=== PATIENT | male | born 1945 | race Caucasian/White ===

== ENCOUNTER 2019-01-25 09:56 | Inpatient (IN) | payer MEDICARE, MEDICAID ==
[~2019-01-25] VITALS: Ht 185.4 cm; Wt 78.8 kg
[2019-01-25] MEDS ORDERED: SODIUM CHLORIDE 0.9% 1,000ML IVBOLUS ONE (10:00)
[2019-01-25] MEDS ORDERED: SODIUM CHLORIDE FLUSH 10ML SYR IVF ONE (10:00)
[2019-01-25] MEDS ORDERED: ALBUTEROL SULFATE 2.5 MG/3 ML ONE (10:18)
[2019-01-25] MEDS ORDERED: PLEASE ENTER ALLERGIES MC SCH (10:30)
[2019-01-25] MEDS ORDERED: ALBUTEROL SULFATE 2.5 MG/3 ML NPPB ONE (10:30)
[2019-01-25] MEDS ORDERED: PLEASE ENTER HEIGHT AND WEIGHT MC SCH (10:30)
[2019-01-25] MEDS ORDERED: OMNIPAQUE 350 MG/ML, 100ML BOTTLE ONE (10:41)
--- NOTE | 2019-01-25 10:49 | NUR ---
ON RETURN FROM CT PT RECEIVED BREATHING TX
[2019-01-25 11:11] LABS: BASOPHILS # (AUTO) 0.01 x10^3/uL (0-0.1); BASOPHILS % (AUTO) 0 % (0-1); EOSINOPHILS # (AUTO) 0.01 x10^3/uL (0-0.4); EOSINOPHILS % (AUTO) 0 % (1-7); LYMPHOCYTES # (AUTO) 0.93 x10^3/uL (1-3.4); LYMPHOCYTES % (AUTO) 10 % (22-44); MD NO; MEAN CORPUSCULAR HGB CONC 33.1 g/dL (33.2-36.2); MEAN CORPUSCULAR VOLUME 84.6 fL (81-97); MEAN PLATELET VOLUME 10.5 fL (7.4-10.4); MONOCYTES % (AUTO) 5 % (2-9); NEUTROPHILS # (AUTO) 7.62 x10^3/uL (1.8-6.8); NEUTROPHILS % (AUTO) 85 % (42-75); PLATELET COUNT 220 x10^3/uL (130-400); RED BLOOD COUNT 3.84 x10^6/uL (4.38-5.82); RED CELL DISTRIBUTION WIDTH 19.7 % (9.4-14.8)
--- NOTE | 2019-01-25 11:11 | NUR ---
ER SPEAKING WITH PT ABOUT CT RESULTS AND INTENTION TO ADMIT TO HOSPITAL
[2019-01-25] MEDS ORDERED: LIDOCAINE-MPF 1%, 5ML ONE (11:17)
[2019-01-25 11:19] LABS: INTERNATIONAL NORMALIZED RATIO 1.03 (0.93-1.1); PROTHROMBIN TIME 10.8 Seconds (9.6-11.5)
--- NOTE | 2019-01-25 11:22 | NUR ---
TO [facility] VIA MEGAN
[2019-01-25 11:23] LABS: ALBUMIN 2.8 g/dL (3.4-5.0); ANION GAP 7 mmol/L (5-15); CALCIUM 7.9 mg/dL (8.5-10.1); CHLORIDE 113 mmol/L (98-107)
[2019-01-25 11:29] LABS: ALANINE AMINOTRANSFERASE 23 U/L (12-78); ALKALINE PHOSPHATASE 76 U/L (45-117); BILIRUBIN,TOTAL 0.6 mg/dL (0.2-1.0); CREATININE 1.33 mg/dL (0.7-1.3); TOTAL PROTEIN 5.8 g/dL (6.4-8.2); TROPONIN I 0.067 ng/mL (0.000-0.045)
[2019-01-25] MEDS ORDERED: ASPIRIN 81 MG TABLET CHEW PO ONE (11:30)
[2019-01-25] MEDS ORDERED: NITR9CAP3 SL (11:37)
[2019-01-25] MEDS ORDERED: OMEP40CA6 PO (11:37)
[2019-01-25] MEDS ORDERED: CHOL2000 PO (11:37)
[2019-01-25] MEDS ORDERED: DOCU250C9 PO (11:37)
[2019-01-25] MEDS ORDERED: DULO30CA2 PO (11:37)
[2019-01-25] MEDS ORDERED: ATOR40TA78 PO (11:37)
[2019-01-25] MEDS ORDERED: CARV3.122 PO (11:37)
[2019-01-25] MEDS ORDERED: OMEG-14 PO (11:37)
[2019-01-25] MEDS ORDERED: BACL20TA PO (11:37)
[2019-01-25] MEDS ORDERED: ASCO10004 PO (11:37)
[2019-01-25] MEDS ORDERED: POTA10PI2 PO (11:37)
[2019-01-25] MEDS ORDERED: PREG100C PO (11:37)
[2019-01-25] MEDS ORDERED: TAMS-11 PO (11:37)
[2019-01-25] MEDS ORDERED: ASPI-515 PO (11:37)
[2019-01-25] MEDS ORDERED: OMEP20TA62 PO (11:37)
[2019-01-25] MEDS ORDERED: CYAN250013 PO (11:37)
[2019-01-25] MEDS ORDERED: FINA5TAB4 PO ×2 (11:37→11:42)
[2019-01-25] MEDS ORDERED: LIPA1CAP18 PO (11:37)
[2019-01-25] MEDS ORDERED: FURO20TA3 PO (11:37)
[2019-01-25] MEDS ORDERED: ALBU8.5H8 INH (11:37)
[2019-01-25] MEDS ORDERED: HYDR-3240 PO (11:37)
--- NOTE | 2019-01-25 11:42 | NUR ---
Report to [facility]
--- NOTE | 2019-01-25 12:10 | NUR ---
returned from [facility] and to be transported to floor
[2019-01-25 12:46] VITALS: BP 123/81
[2019-01-25] MEDS ORDERED: ONDANSETRON ODT 4 MG PO PRN (16:30)
[2019-01-25] MEDS ORDERED: ACETAMINOPHEN 325 MG TABLET PO PRN (16:30)
[2019-01-25] MEDS ORDERED: DOCUSATE 100 MG CAPSULE PO PRN (16:30)
[2019-01-25] MEDS ORDERED: HYDROcodone/APAP 5/325 TABLET PO PRN (16:30)
[2019-01-25] MEDS ORDERED: LABETALOL 5 MG/ML SYRINGE IVPush PRN (16:30)
[2019-01-25] MEDS ORDERED: BISACODYL 10 MG SUPP PR PRN (16:30)
[2019-01-25] MEDS ORDERED: PROMETHAZINE 25 MG/ML, 1ML IM PRN (16:30)
[2019-01-25] MEDS ORDERED: ONDANSETRON 2MG/ML, 2ML IVPush PRN (16:30)
[2019-01-25] MEDS ORDERED: hydrALAzine 20 MG/ML, 1ML IVPush PRN (16:30)
[2019-01-25] MEDS ORDERED: POLYETHYLENE GLYCOL 17 GM PACKET PO PRN (16:30)
[2019-01-25] MEDS: [UNRECOGNIZED DRUG - REMARK] MC SCH (16:51)
[2019-01-25 17:02] LABS: FREE T4 (FREE THYROXINE) 0.95 ng/dL (0.76-1.46); THYROID STIMULATING HORMONE 1.28 mIU/L (0.358-3.740)
[2019-01-25 17:19] LABS: HEMOGLOBIN A1C 6.1 % (4.2-6.3)
[2019-01-25] MEDS ORDERED: ALBUTEROL SULFATE 2.5 MG/3 ML NPPB PRN (17:30)
[2019-01-25] MEDS: PREGABALIN 100 MG CAPSULE PO SCH ×2 (18:05→20:04)
[2019-01-25] MEDS: HYDROcodone/APAP 5/325 TABLET PO PRN ×2 (18:06→22:34)
[2019-01-25] MEDS: GUAIFENESIN ER 600 MG TABLET PO SCH (18:06)
[2019-01-25] MEDS: NICOTINE 7 MG/24 HR PATCH.TD24 TD SCH (18:06)
[2019-01-25] MEDS: HEPARIN 5,000 UNITS/ML, 1ML SQ SCH (18:06)
[2019-01-25 18:40] VITALS: BP 111/73
[2019-01-25] MEDS: BACLOFEN 10 MG TABLET PO SCH (20:04)
[2019-01-25] MEDS: CYANOCOBALAMIN 1,000 MCG TABLET PO SCH (20:04)
[2019-01-25] MEDS: ATORVASTATIN 40 MG TABLET PO SCH (20:04)
[2019-01-25] MEDS: CARVEDILOL 3.125 MG TABLET PO SCH (20:04)
[2019-01-25] MEDS: LORazepam 2 MG/ML, 1ML IVPush PRN (23:07)
[2019-01-26] MEDS: HEPARIN 5,000 UNITS/ML, 1ML SQ SCH ×3 (00:20→20:09)
[2019-01-26] MEDS: [UNRECOGNIZED DRUG - REMARK] MC SCH ×3 (00:40→16:51)
[2019-01-26 02:19] VITALS: BP 118/80
[2019-01-26] MEDS: HYDROcodone/APAP 5/325 TABLET PO PRN ×4 (02:52→21:42)
[2019-01-26 04:08] LABS: BASOPHILS % (AUTO) 0 % (0-1); EOSINOPHILS # (AUTO) 0.19 x10^3/uL (0-0.4); EOSINOPHILS % (AUTO) 2 % (1-7); LYMPHOCYTES % (AUTO) 16 % (22-44); MD NO; MEAN CORPUSCULAR HEMOGLOBIN 27.4 pg (27.5-34.5); MEAN CORPUSCULAR HGB CONC 32.3 g/dL (33.2-36.2); MEAN CORPUSCULAR VOLUME 84.9 fL (81-97); MEAN PLATELET VOLUME 10.9 fL (7.4-10.4); MONOCYTES # (AUTO) 0.56 x10^3/uL (0.2-0.8); MONOCYTES % (AUTO) 5 % (2-9); NEUTROPHILS # (AUTO) 8.55 x10^3/uL (1.8-6.8); NEUTROPHILS % (AUTO) 78 % (42-75); PLATELET COUNT 288 x10^3/uL (130-400); RED BLOOD COUNT 4.56 x10^6/uL (4.38-5.82); RED CELL DISTRIBUTION WIDTH 19.8 % (9.4-14.8)
[2019-01-26 04:16] LABS: ALBUMIN 3.3 g/dL (3.4-5.0); ANION GAP 5 mmol/L (5-15); CALCIUM 8.3 mg/dL (8.5-10.1); CHLORIDE 110 mmol/L (98-107)
[2019-01-26 04:18] LABS: ALANINE AMINOTRANSFERASE 33 U/L (12-78); ALKALINE PHOSPHATASE 95 U/L (45-117); BILIRUBIN,TOTAL 0.4 mg/dL (0.2-1.0); CHOLESTEROL, TOTAL 131 mg/dL (140-239); CREATININE 1.38 mg/dL (0.7-1.3); HDL CHOL % 50 % (26-37); HDL CHOLESTEROL (DIRECT) 66 mg/dL (40-60); LDL CHOLESTEROL,CALCULATED 48 mg/dL (54-169); LDL/HDL RATIO 0.7 (0.5-3.0); TOTAL PROTEIN 6.7 g/dL (6.4-8.2); TRIGLYCERIDES 84 mg/dL (50-200); VLDL CHOLESTEROL 17 mg/dL (0-25)
[2019-01-26 04:43] LABS: TROPONIN I 0.058 ng/mL (0.000-0.045)
[2019-01-26] MEDS: GUAIFENESIN ER 600 MG TABLET PO SCH ×2 (05:37→17:42)
[2019-01-26] MEDS ORDERED: FUROSEMIDE 20 MG TABLET ONE (06:03)
[2019-01-26] MEDS ORDERED: FUROSEMIDE 20 MG TABLET PO ONE (06:30)
[2019-01-26 07:10] VITALS: BP 124/82
[2019-01-26] MEDS ORDERED: FUROSEMIDE 20 MG TABLET PO SCH (09:00)
[2019-01-26] MEDS ORDERED: FINASTERIDE 5 MG TABLET PO SCH ×2 (09:00)
[2019-01-26] MEDS: SODIUM CHLORIDE 0.9% 1,000 ML IV SCH ×2 (10:00→23:04)
[2019-01-26] MEDS ORDERED: OMNIPAQUE 350 MG/ML, 100ML BOTTLE ONE (10:51)
[2019-01-26] MEDS: CYANOCOBALAMIN 1,000 MCG TABLET PO SCH ×2 (11:20→20:08)
[2019-01-26] MEDS: BACLOFEN 10 MG TABLET PO SCH ×2 (11:20→20:08)
[2019-01-26] MEDS: TAMSULOSIN 0.4 MG CAP.ER.24H PO SCH (11:20)
[2019-01-26] MEDS: CHOLECALCIFEROL 1,000 UNIT TABLET PO SCH (11:20)
[2019-01-26] MEDS: CARVEDILOL 3.125 MG TABLET PO SCH ×2 (11:21→20:09)
[2019-01-26] MEDS: DULOXETINE 30 MG CAPSULE.DR PO SCH (11:21)
[2019-01-26] MEDS: PREGABALIN 100 MG CAPSULE PO SCH ×3 (11:21→20:09)
[2019-01-26] MEDS: ASCORBIC ACID 500 MG TABLET PO SCH (11:21)
[2019-01-26] MEDS: ASPIRIN 81 MG TABLET EC PO SCH (11:21)
[2019-01-26] MEDS: methylPREDNISolone SOD SUCC 125 MG/2 ML IVPush SCH ×3 (11:28→22:48)
[2019-01-26] MEDS: PIPERACILLIN/TAZO/PMX 3.375GM 50 ML IV SCH ×3 (11:51→21:42)
[2019-01-26] MEDS: OMEPRAZOLE 20 MG CAPSULE.DR PO SCH (11:52)
[2019-01-26] MEDS: FINASTERIDE 5 MG TABLET PO SCH (11:52)
[2019-01-26 13:08] VITALS: BP 120/83
[2019-01-26] MEDS: NICOTINE 7 MG/24 HR PATCH.TD24 TD SCH (16:30)
[2019-01-26 19:41] VITALS: BP 111/75
[2019-01-26] MEDS: ATORVASTATIN 40 MG TABLET PO SCH (20:08)
[2019-01-27] MEDS: [UNRECOGNIZED DRUG - REMARK] MC SCH ×4 (00:51→23:23)
[2019-01-27 02:04] VITALS: BP 124/83
[2019-01-27] MEDS: HYDROcodone/APAP 5/325 TABLET PO PRN ×4 (03:09→20:59)
[2019-01-27] MEDS: PIPERACILLIN/TAZO/PMX 3.375GM 50 ML IV SCH ×4 (05:04→23:01)
[2019-01-27] MEDS: GUAIFENESIN ER 600 MG TABLET PO SCH ×2 (05:04→16:10)
[2019-01-27] MEDS: HEPARIN 5,000 UNITS/ML, 1ML SQ SCH ×3 (05:05→21:04)
[2019-01-27] MEDS: methylPREDNISolone SOD SUCC 125 MG/2 ML IVPush SCH ×4 (05:05→23:01)
[2019-01-27 07:13] VITALS: BP 125/87
[2019-01-27] MEDS: PREGABALIN 100 MG CAPSULE PO SCH ×3 (09:03→20:59)
[2019-01-27] MEDS: CHOLECALCIFEROL 1,000 UNIT TABLET PO SCH (09:03)
[2019-01-27] MEDS: OMEPRAZOLE 20 MG CAPSULE.DR PO SCH (09:04)
[2019-01-27] MEDS: ASCORBIC ACID 500 MG TABLET PO SCH (09:04)
[2019-01-27] MEDS: DULOXETINE 30 MG CAPSULE.DR PO SCH (09:04)
[2019-01-27] MEDS: BACLOFEN 10 MG TABLET PO SCH ×2 (09:04→20:59)
[2019-01-27] MEDS: CARVEDILOL 3.125 MG TABLET PO SCH ×2 (09:04→20:59)
[2019-01-27] MEDS: CYANOCOBALAMIN 1,000 MCG TABLET PO SCH ×2 (09:04→20:58)
[2019-01-27] MEDS: ASPIRIN 81 MG TABLET EC PO SCH (09:04)
[2019-01-27] MEDS: TAMSULOSIN 0.4 MG CAP.ER.24H PO SCH (09:05)
[2019-01-27] MEDS: FINASTERIDE 5 MG TABLET PO SCH (09:07)
[2019-01-27 13:06] VITALS: BP 110/72
[2019-01-27] MEDS: NICOTINE 7 MG/24 HR PATCH.TD24 TD SCH (16:08)
[2019-01-27] MEDS: LOSARTAN 25MG TABLET PO SCH (16:10)
[2019-01-27 19:34] VITALS: BP 104/66
[2019-01-27] MEDS: ATORVASTATIN 40 MG TABLET PO SCH (20:59)
[2019-01-28 01:21] VITALS: BP 112/69
[2019-01-28] MEDS: methylPREDNISolone SOD SUCC 125 MG/2 ML IVPush SCH ×4 (05:17→22:44)
[2019-01-28] MEDS: PIPERACILLIN/TAZO/PMX 3.375GM 50 ML IV SCH ×4 (05:17→22:44)
[2019-01-28] MEDS: GUAIFENESIN ER 600 MG TABLET PO SCH ×2 (05:17→16:49)
[2019-01-28] MEDS: HEPARIN 5,000 UNITS/ML, 1ML SQ SCH ×3 (05:17→22:00)
[2019-01-28 05:47] LABS: CALCIUM 8.3 mg/dL (8.5-10.1); CHLORIDE 108 mmol/L (98-107)
[2019-01-28 05:50] LABS: ANION GAP 9 mmol/L (5-15); CREATININE 1.52 mg/dL (0.7-1.3)
[2019-01-28 06:05] LABS: BASOPHILS # (AUTO) 0.01 x10^3/uL (0-0.1); BASOPHILS % (AUTO) 0 % (0-1); EOSINOPHILS % (AUTO) 0 % (1-7); LYMPHOCYTES # (AUTO) 0.72 x10^3/uL (1-3.4); LYMPHOCYTES % (AUTO) 7 % (22-44); MD MORPH REVIEW ONLY; MEAN CORPUSCULAR HEMOGLOBIN 27.1 pg (27.5-34.5); MEAN CORPUSCULAR HGB CONC 31.8 g/dL (33.2-36.2); MEAN CORPUSCULAR VOLUME 85.2 fL (81-97); MEAN PLATELET VOLUME 11.8 fL (7.4-10.4); MONOCYTES # (AUTO) 0.29 x10^3/uL (0.2-0.8); MONOCYTES % (AUTO) 3 % (2-9); NEUTROPHILS # (AUTO) 8.93 x10^3/uL (1.8-6.8); NEUTROPHILS % (AUTO) 90 % (42-75); PLATELET COUNT 256 x10^3/uL (130-400); RED BLOOD COUNT 4.26 x10^6/uL (4.38-5.82); RED CELL DISTRIBUTION WIDTH 20.1 % (9.4-14.8)
[2019-01-28 06:06] LABS: ANISOCYTOSIS 2+
[2019-01-28 06:07] LABS: <PLATELET ESTIMATE> ADEQUATE; <PLT MORPHOLOGY> NORMAL PLT MORPH; ACANTHOCYTES 1+; ECHINOCYTES 1+; MICROCYTOSIS 1+; OVALOCYTES 1+; SCHISTOCYTES 1+
[2019-01-28] MEDS: LORazepam 2 MG/ML, 1ML IVPush PRN (06:18)
[2019-01-28 07:34] VITALS: BP 115/72
[2019-01-28] MEDS: [UNRECOGNIZED DRUG - REMARK] MC SCH ×3 (08:51→22:44)
[2019-01-28] MEDS: CYANOCOBALAMIN 1,000 MCG TABLET PO SCH ×2 (10:48→22:00)
[2019-01-28] MEDS: CARVEDILOL 3.125 MG TABLET PO SCH ×2 (10:49→22:00)
[2019-01-28] MEDS: LOSARTAN 25MG TABLET PO SCH (10:49)
[2019-01-28] MEDS: OMEPRAZOLE 20 MG CAPSULE.DR PO SCH (10:49)
[2019-01-28] MEDS: BACLOFEN 10 MG TABLET PO SCH ×2 (10:49→22:00)
[2019-01-28] MEDS: ASPIRIN 81 MG TABLET EC PO SCH (10:49)
[2019-01-28] MEDS: CHOLECALCIFEROL 1,000 UNIT TABLET PO SCH (10:50)
[2019-01-28] MEDS: FINASTERIDE 5 MG TABLET PO SCH (10:50)
[2019-01-28] MEDS: DULOXETINE 30 MG CAPSULE.DR PO SCH (10:50)
[2019-01-28] MEDS: ASCORBIC ACID 500 MG TABLET PO SCH (10:50)
[2019-01-28] MEDS: PREGABALIN 100 MG CAPSULE PO SCH ×3 (11:05→21:59)
[2019-01-28] MEDS: TAMSULOSIN 0.4 MG CAP.ER.24H PO SCH (11:05)
[2019-01-28 12:50] VITALS: BP 107/70
[2019-01-28] MEDS ORDERED: LIDOCAINE-MPF 1%, 5ML ONE ×2 (13:37)
[2019-01-28] MEDS ORDERED: FENTANYL PF 100 MCG/2ML ONE (14:12)
[2019-01-28] MEDS ORDERED: FLUMAZENIL 0.1 MG/1 ML, 5ML ONE (14:13)
[2019-01-28] MEDS ORDERED: MIDAZOLAM 1 MG/ML, 5ML ONE ×2 (14:13)
[2019-01-28] MEDS ORDERED: NALOXONE 1 MG/ML, 2ML ONE (14:13)
[2019-01-28] MEDS: ALBUTEROL SULFATE 2.5 MG/3 ML NPPB SCH ×3 (14:55→23:00)
[2019-01-28] MEDS: NICOTINE 7 MG/24 HR PATCH.TD24 TD SCH (16:51)
[2019-01-28 18:45] VITALS: BP 110/84
[2019-01-28 21:57] VITALS: BP 116/71
[2019-01-28] MEDS: ATORVASTATIN 40 MG TABLET PO SCH (21:59)
[2019-01-29] MEDS: HYDROcodone/APAP 5/325 TABLET PO PRN ×4 (01:47→18:43)
[2019-01-29 02:00] VITALS: BP 92/61
[2019-01-29] MEDS: ALBUTEROL SULFATE 2.5 MG/3 ML NPPB SCH ×4 (02:49→20:07)
[2019-01-29 04:41] VITALS: BP 128/83
[2019-01-29] MEDS: PIPERACILLIN/TAZO/PMX 3.375GM 50 ML IV SCH ×4 (04:58→23:00)
[2019-01-29] MEDS: methylPREDNISolone SOD SUCC 125 MG/2 ML IVPush SCH ×4 (04:58→23:01)
[2019-01-29] MEDS: HEPARIN 5,000 UNITS/ML, 1ML SQ SCH ×3 (05:05→21:05)
[2019-01-29] MEDS: GUAIFENESIN ER 600 MG TABLET PO SCH ×2 (05:05→18:43)
[2019-01-29 05:28] LABS: MEAN CORPUSCULAR HEMOGLOBIN 27.8 pg (27.5-34.5); MEAN CORPUSCULAR HGB CONC 32.6 g/dL (33.2-36.2); MEAN CORPUSCULAR VOLUME 85.1 fL (81-97); MEAN PLATELET VOLUME 10.9 fL (7.4-10.4); PLATELET COUNT 251 x10^3/uL (130-400); RED BLOOD COUNT 4.16 x10^6/uL (4.38-5.82); RED CELL DISTRIBUTION WIDTH 20.5 % (9.4-14.8)
[2019-01-29 05:45] LABS: CHLORIDE 113 mmol/L (98-107)
[2019-01-29 05:49] LABS: ANION GAP 9 mmol/L (5-15); CALCIUM 8.3 mg/dL (8.5-10.1); CREATININE 1.41 mg/dL (0.7-1.3)
[2019-01-29 06:01] LABS: BASOPHILS % (AUTO) 0 % (0-1); EOSINOPHILS # (AUTO) 0.03 x10^3/uL (0-0.4); EOSINOPHILS % (AUTO) 0 % (1-7); LYMPHOCYTES # (AUTO) 1.02 x10^3/uL (1-3.4); LYMPHOCYTES % (AUTO) 11 % (22-44); MD SCAN; MONOCYTES # (AUTO) 0.29 x10^3/uL (0.2-0.8); MONOCYTES % (AUTO) 3 % (2-9); NEUTROPHILS # (AUTO) 7.78 x10^3/uL (1.8-6.8); NEUTROPHILS % (AUTO) 85 % (42-75)
[2019-01-29 07:25] VITALS: BP 136/91
[2019-01-29] MEDS: DULOXETINE 30 MG CAPSULE.DR PO SCH (08:39)
[2019-01-29] MEDS: FINASTERIDE 5 MG TABLET PO SCH (08:39)
[2019-01-29] MEDS: ASCORBIC ACID 500 MG TABLET PO SCH (08:39)
[2019-01-29] MEDS: CHOLECALCIFEROL 1,000 UNIT TABLET PO SCH (08:39)
[2019-01-29] MEDS: BACLOFEN 10 MG TABLET PO SCH ×2 (08:40→21:03)
[2019-01-29] MEDS: ASPIRIN 81 MG TABLET EC PO SCH (08:40)
[2019-01-29] MEDS: CYANOCOBALAMIN 1,000 MCG TABLET PO SCH ×2 (08:40→21:04)
[2019-01-29] MEDS: OMEPRAZOLE 20 MG CAPSULE.DR PO SCH (08:40)
[2019-01-29] MEDS: CARVEDILOL 3.125 MG TABLET PO SCH ×2 (08:40→21:03)
[2019-01-29] MEDS: LOSARTAN 25MG TABLET PO SCH (08:40)
[2019-01-29] MEDS: TAMSULOSIN 0.4 MG CAP.ER.24H PO SCH (08:51)
[2019-01-29] MEDS: [UNRECOGNIZED DRUG - REMARK] MC SCH ×3 (08:51→22:54)
[2019-01-29] MEDS: PREGABALIN 100 MG CAPSULE PO SCH ×3 (08:51→21:03)
[2019-01-29] MEDS ORDERED: ALBUTEROL SULFATE 2.5 MG/3 ML ONE (13:33)
[2019-01-29 16:27] VITALS: BP 136/101
[2019-01-29] MEDS: NICOTINE 7 MG/24 HR PATCH.TD24 TD SCH (16:30)
[2019-01-29 18:54] VITALS: BP 113/67
[2019-01-29] MEDS: ATORVASTATIN 40 MG TABLET PO SCH (21:03)
[2019-01-30 01:37] VITALS: BP 98/56
[2019-01-30] MEDS: ALBUTEROL SULFATE 2.5 MG/3 ML NPPB SCH ×4 (03:57→19:40)
[2019-01-30 04:16] LABS: MEAN CORPUSCULAR HEMOGLOBIN 26.9 pg (27.5-34.5); MEAN CORPUSCULAR HGB CONC 31.6 g/dL (33.2-36.2); MEAN PLATELET VOLUME 10.9 fL (7.4-10.4); PLATELET COUNT 242 x10^3/uL (130-400); RED BLOOD COUNT 4.29 x10^6/uL (4.38-5.82); RED CELL DISTRIBUTION WIDTH 20.4 % (9.4-14.8)
[2019-01-30 04:32] LABS: ANION GAP 7 mmol/L (5-15); CALCIUM 8.3 mg/dL (8.5-10.1); CHLORIDE 116 mmol/L (98-107)
[2019-01-30 04:35] LABS: CREATININE 1.54 mg/dL (0.7-1.3)
[2019-01-30] MEDS: PIPERACILLIN/TAZO/PMX 3.375GM 50 ML IV SCH ×4 (05:25→22:44)
[2019-01-30] MEDS: HEPARIN 5,000 UNITS/ML, 1ML SQ SCH (05:25)
[2019-01-30] MEDS: methylPREDNISolone SOD SUCC 125 MG/2 ML IVPush SCH ×4 (05:25→22:50)
[2019-01-30] MEDS: GUAIFENESIN ER 600 MG TABLET PO SCH ×2 (05:48→18:00)
[2019-01-30] MEDS: morphine SULFATE 10 MG/ML, 1ML IVPush PRN (05:48)
[2019-01-30 05:50] LABS: BASOPHILS % (AUTO) 0 % (0-1); EOSINOPHILS % (AUTO) 0 % (1-7); LYMPHOCYTES # (AUTO) 0.66 x10^3/uL (1-3.4); LYMPHOCYTES % (AUTO) 7 % (22-44); MD SCAN; MONOCYTES # (AUTO) 0.26 x10^3/uL (0.2-0.8); MONOCYTES % (AUTO) 3 % (2-9); NEUTROPHILS # (AUTO) 8.93 x10^3/uL (1.8-6.8); NEUTROPHILS % (AUTO) 91 % (42-75)
[2019-01-30 08:22] VITALS: BP 118/59
[2019-01-30] MEDS: [UNRECOGNIZED DRUG - REMARK] MC SCH ×3 (08:51→22:50)
[2019-01-30] MEDS: FINASTERIDE 5 MG TABLET PO SCH (09:09)
[2019-01-30] MEDS: ASPIRIN 81 MG TABLET EC PO SCH (09:09)
[2019-01-30] MEDS: CYANOCOBALAMIN 1,000 MCG TABLET PO SCH ×2 (09:09→21:04)
[2019-01-30] MEDS: OMEPRAZOLE 20 MG CAPSULE.DR PO SCH (09:09)
[2019-01-30] MEDS: PREGABALIN 100 MG CAPSULE PO SCH ×3 (09:10→21:04)
[2019-01-30] MEDS: CHOLECALCIFEROL 1,000 UNIT TABLET PO SCH (09:10)
[2019-01-30] MEDS: CARVEDILOL 3.125 MG TABLET PO SCH ×2 (09:10→21:04)
[2019-01-30] MEDS: ASCORBIC ACID 500 MG TABLET PO SCH (09:10)
[2019-01-30] MEDS: LOSARTAN 25MG TABLET PO SCH (09:10)
[2019-01-30] MEDS: BACLOFEN 10 MG TABLET PO SCH ×2 (09:10→21:04)
[2019-01-30] MEDS: TAMSULOSIN 0.4 MG CAP.ER.24H PO SCH (09:10)
[2019-01-30] MEDS: DULOXETINE 30 MG CAPSULE.DR PO SCH (09:10)
[2019-01-30] MEDS: ENOXAPARIN 40 MG/0.4 ML SQ SCH (13:27)
[2019-01-30] MEDS: HYDROcodone/APAP 5/325 TABLET PO PRN ×2 (14:33→21:03)
[2019-01-30 14:58] VITALS: BP 134/71
[2019-01-30] MEDS ORDERED: LORazepam 2 MG/ML, 1ML IVPush PRN (16:00)
[2019-01-30] MEDS: NICOTINE 7 MG/24 HR PATCH.TD24 TD SCH (16:30)
[2019-01-30 20:52] VITALS: BP 129/74
[2019-01-30] MEDS: ATORVASTATIN 40 MG TABLET PO SCH (21:04)
[2019-01-31 01:03] VITALS: BP 102/68
[2019-01-31 03:43] LABS: ANION GAP 7 mmol/L (5-15); CALCIUM 8.2 mg/dL (8.5-10.1); CHLORIDE 115 mmol/L (98-107); CREATININE 1.36 mg/dL (0.7-1.3)
[2019-01-31 03:47] LABS: MEAN CORPUSCULAR HEMOGLOBIN 27.4 pg (27.5-34.5); MEAN CORPUSCULAR HGB CONC 32.6 g/dL (33.2-36.2); MEAN PLATELET VOLUME 11.3 fL (7.4-10.4); PLATELET COUNT 244 x10^3/uL (130-400); RED BLOOD COUNT 4.43 x10^6/uL (4.38-5.82); RED CELL DISTRIBUTION WIDTH 20.3 % (9.4-14.8)
[2019-01-31] MEDS: methylPREDNISolone SOD SUCC 125 MG/2 ML IVPush SCH ×4 (05:20→23:30)
[2019-01-31] MEDS: GUAIFENESIN ER 600 MG TABLET PO SCH ×2 (05:20→17:48)
[2019-01-31] MEDS: PIPERACILLIN/TAZO/PMX 3.375GM 50 ML IV SCH ×4 (05:20→22:41)
[2019-01-31] MEDS: HYDROcodone/APAP 5/325 TABLET PO PRN ×4 (05:29→21:45)
[2019-01-31 05:47] LABS: BASOPHILS # (AUTO) 0.01 x10^3/uL (0-0.1); BASOPHILS % (AUTO) 0 % (0-1); EOSINOPHILS # (AUTO) 0.15 x10^3/uL (0-0.4); EOSINOPHILS % (AUTO) 2 % (1-7); LYMPHOCYTES # (AUTO) 0.74 x10^3/uL (1-3.4); LYMPHOCYTES % (AUTO) 8 % (22-44); MD SCAN; MONOCYTES # (AUTO) 0.12 x10^3/uL (0.2-0.8); MONOCYTES % (AUTO) 1 % (2-9); NEUTROPHILS % (AUTO) 89 % (42-75)
[2019-01-31 08:02] VITALS: BP 136/96
[2019-01-31] MEDS: [UNRECOGNIZED DRUG - REMARK] MC SCH (08:51)
[2019-01-31] MEDS: ALBUTEROL SULFATE 2.5 MG/3 ML NPPB SCH ×3 (08:55→19:33)
[2019-01-31] MEDS: OMEPRAZOLE 20 MG CAPSULE.DR PO SCH (11:09)
[2019-01-31] MEDS: ASPIRIN 81 MG TABLET EC PO SCH (11:09)
[2019-01-31] MEDS: ASCORBIC ACID 500 MG TABLET PO SCH (11:10)
[2019-01-31] MEDS: PREGABALIN 100 MG CAPSULE PO SCH ×3 (11:10→21:40)
[2019-01-31] MEDS: CYANOCOBALAMIN 1,000 MCG TABLET PO SCH ×2 (11:10→21:40)
[2019-01-31] MEDS: TAMSULOSIN 0.4 MG CAP.ER.24H PO SCH (11:10)
[2019-01-31] MEDS: BACLOFEN 10 MG TABLET PO SCH ×2 (11:10→21:39)
[2019-01-31] MEDS: CARVEDILOL 3.125 MG TABLET PO SCH ×2 (11:11→21:39)
[2019-01-31] MEDS: FINASTERIDE 5 MG TABLET PO SCH (11:11)
[2019-01-31] MEDS: CHOLECALCIFEROL 1,000 UNIT TABLET PO SCH (11:16)
[2019-01-31] MEDS: DULOXETINE 30 MG CAPSULE.DR PO SCH (11:20)
[2019-01-31] MEDS ORDERED: FUROSEMIDE 40 MG/4 ML ONE (11:21)
[2019-01-31] MEDS ORDERED: FUROSEMIDE 40 MG/4 ML IV ONE (11:30)
[2019-01-31] MEDS: ENOXAPARIN 40 MG/0.4 ML SQ SCH (13:49)
[2019-01-31 14:52] VITALS: BP 109/68
[2019-01-31] MEDS: NICOTINE 7 MG/24 HR PATCH.TD24 TD SCH (15:49)
[2019-01-31 19:01] VITALS: BP 122/74
[2019-01-31] MEDS: ATORVASTATIN 40 MG TABLET PO SCH (21:39)
[2019-02-01] MEDS: morphine SULFATE 10 MG/ML, 1ML IVPush PRN (01:18)
[2019-02-01 01:23] VITALS: BP 124/67
[2019-02-01] MEDS: HYDROcodone/APAP 5/325 TABLET PO PRN ×5 (02:00→23:31)
[2019-02-01] MEDS: ALBUTEROL SULFATE 2.5 MG/3 ML NPPB SCH ×4 (03:25→19:08)
[2019-02-01] MEDS: PIPERACILLIN/TAZO/PMX 3.375GM 50 ML IV SCH ×4 (04:25→23:25)
[2019-02-01] MEDS: methylPREDNISolone SOD SUCC 125 MG/2 ML IVPush SCH ×4 (05:32→23:24)
[2019-02-01] MEDS: GUAIFENESIN ER 600 MG TABLET PO SCH ×2 (05:32→18:43)
[2019-02-01 07:00] VITALS: BP 124/67
[2019-02-01 08:10] VITALS: BP 132/78
[2019-02-01] MEDS: CHOLECALCIFEROL 1,000 UNIT TABLET PO SCH (08:13)
[2019-02-01] MEDS: DULOXETINE 30 MG CAPSULE.DR PO SCH (08:13)
[2019-02-01] MEDS: FINASTERIDE 5 MG TABLET PO SCH (08:14)
[2019-02-01] MEDS: TAMSULOSIN 0.4 MG CAP.ER.24H PO SCH (08:14)
[2019-02-01] MEDS: CYANOCOBALAMIN 1,000 MCG TABLET PO SCH ×2 (08:14→20:04)
[2019-02-01] MEDS: LOSARTAN 25MG TABLET PO SCH (08:15)
[2019-02-01] MEDS: PREGABALIN 100 MG CAPSULE PO SCH ×3 (08:15→23:31)
[2019-02-01] MEDS: ASPIRIN 81 MG TABLET EC PO SCH (08:15)
[2019-02-01] MEDS: ASCORBIC ACID 500 MG TABLET PO SCH (08:15)
[2019-02-01] MEDS: CARVEDILOL 3.125 MG TABLET PO SCH ×2 (08:16→20:03)
[2019-02-01] MEDS: BACLOFEN 10 MG TABLET PO SCH ×2 (08:16→20:03)
[2019-02-01] MEDS: OMEPRAZOLE 20 MG CAPSULE.DR PO SCH (08:17)
[2019-02-01] MEDS: FUROSEMIDE 20 MG/2 ML IV SCH ×2 (08:43→20:04)
[2019-02-01] MEDS ORDERED: FUROSEMIDE 20 MG/2 ML IV SCH (09:00)
[2019-02-01] MEDS ORDERED: LORazepam 2 MG/ML, 1ML IVPush PRN (09:30)
[2019-02-01 12:06] VITALS: BP 135/68
[2019-02-01] MEDS: ENOXAPARIN 40 MG/0.4 ML SQ SCH (12:35)
[2019-02-01] MEDS: NICOTINE 7 MG/24 HR PATCH.TD24 TD SCH ×2 (15:47→15:48)
[2019-02-01 19:30] VITALS: BP 127/78
[2019-02-01 19:48] VITALS: BP 121/79
[2019-02-01] MEDS: ATORVASTATIN 40 MG TABLET PO SCH (20:03)
[2019-02-02 02:23] VITALS: BP 103/65
[2019-02-02] MEDS: ALBUTEROL SULFATE 2.5 MG/3 ML NPPB SCH ×3 (03:20→21:00)
[2019-02-02 04:40] LABS: MEAN CORPUSCULAR HEMOGLOBIN 27.1 pg (27.5-34.5); MEAN CORPUSCULAR HGB CONC 32.3 g/dL (33.2-36.2); MEAN CORPUSCULAR VOLUME 83.9 fL (81-97); MEAN PLATELET VOLUME 11.2 fL (7.4-10.4); PLATELET COUNT 221 x10^3/uL (130-400); RED BLOOD COUNT 3.94 x10^6/uL (4.38-5.82); RED CELL DISTRIBUTION WIDTH 20.4 % (9.4-14.8)
[2019-02-02 04:47] LABS: ANION GAP 7 mmol/L (5-15); CALCIUM 7.7 mg/dL (8.5-10.1); CHLORIDE 108 mmol/L (98-107); CREATININE 1.39 mg/dL (0.7-1.3)
[2019-02-02] MEDS: HYDROcodone/APAP 5/325 TABLET PO PRN ×4 (04:58→22:21)
[2019-02-02] MEDS: morphine SULFATE 10 MG/ML, 1ML IVPush PRN ×3 (04:58→15:37)
[2019-02-02] MEDS: GUAIFENESIN ER 600 MG TABLET PO SCH ×2 (04:58→18:28)
[2019-02-02] MEDS: PIPERACILLIN/TAZO/PMX 3.375GM 50 ML IV SCH ×3 (04:58→18:28)
[2019-02-02] MEDS: methylPREDNISolone SOD SUCC 125 MG/2 ML IVPush SCH ×3 (05:04→18:28)
[2019-02-02 05:26] LABS: MD YES
[2019-02-02 05:30] LABS: BAND#(MANUAL) 0.28 x10^3/uL; BANDS%(MANUAL) 3 % (0-7); LYMPH#(MANUAL) 0.28 x10^3/uL (1-3.4); LYMPHS% (MANUAL) 3 % (22-44); MONOS#(MANUAL) 0.09 x10^3/uL (0.3-2.7); MONOS% (MANUAL) 1 % (2-9); SEG#(MANUAL) 8.56 x10^3/uL (1.8-6.8); SEGS% (MANUAL) 93 % (42-75)
[2019-02-02 05:32] LABS: ANISOCYTOSIS 2+
[2019-02-02 05:33] LABS: ACANTHOCYTES 1+; OVALOCYTES 1+; SCHISTOCYTES 1+; TARGET CELLS 1+
[2019-02-02 05:34] LABS: <PLATELET ESTIMATE> ADEQUATE; LARGE PLATELETS 1+
[2019-02-02 08:50] VITALS: BP 141/77
[2019-02-02] MEDS: PREGABALIN 100 MG CAPSULE PO SCH ×2 (10:02→15:36)
[2019-02-02] MEDS: TAMSULOSIN 0.4 MG CAP.ER.24H PO SCH (10:02)
[2019-02-02] MEDS: FUROSEMIDE 20 MG/2 ML IV SCH ×2 (10:02→22:12)
[2019-02-02] MEDS: LOSARTAN 25MG TABLET PO SCH (10:02)
[2019-02-02] MEDS: ASCORBIC ACID 500 MG TABLET PO SCH (10:02)
[2019-02-02] MEDS: BACLOFEN 10 MG TABLET PO SCH ×2 (10:02→22:13)
[2019-02-02] MEDS: CHOLECALCIFEROL 1,000 UNIT TABLET PO SCH (10:03)
[2019-02-02] MEDS: CYANOCOBALAMIN 1,000 MCG TABLET PO SCH ×2 (10:03→22:13)
[2019-02-02] MEDS: DULOXETINE 30 MG CAPSULE.DR PO SCH (10:03)
[2019-02-02] MEDS: ASPIRIN 81 MG TABLET EC PO SCH (10:03)
[2019-02-02] MEDS: FINASTERIDE 5 MG TABLET PO SCH (10:03)
[2019-02-02] MEDS: CARVEDILOL 3.125 MG TABLET PO SCH ×2 (10:04→22:13)
[2019-02-02] MEDS: OMEPRAZOLE 20 MG CAPSULE.DR PO SCH (10:20)
[2019-02-02] MEDS: ENOXAPARIN 40 MG/0.4 ML SQ SCH (13:30)
[2019-02-02 14:20] VITALS: BP 134/79
[2019-02-02] MEDS: NICOTINE 7 MG/24 HR PATCH.TD24 TD SCH (16:15)
[2019-02-02 19:42] VITALS: BP 126/73
[2019-02-02] MEDS: ATORVASTATIN 40 MG TABLET PO SCH (22:13)
[2019-02-03] MEDS: PIPERACILLIN/TAZO/PMX 3.375GM 50 ML IV SCH ×4 (00:09→19:27)
[2019-02-03] MEDS: methylPREDNISolone SOD SUCC 125 MG/2 ML IVPush SCH ×4 (00:09→19:27)
[2019-02-03] MEDS: PREGABALIN 100 MG CAPSULE PO SCH ×3 (00:09→17:07)
[2019-02-03 03:22] VITALS: BP 133/72
[2019-02-03] MEDS: ALBUTEROL SULFATE 2.5 MG/3 ML NPPB SCH ×5 (03:45→23:57)
[2019-02-03] MEDS: morphine SULFATE 10 MG/ML, 1ML IVPush PRN ×2 (04:56→10:24)
[2019-02-03] MEDS: GUAIFENESIN ER 600 MG TABLET PO SCH ×2 (06:48→19:26)
[2019-02-03] MEDS: HYDROcodone/APAP 5/325 TABLET PO PRN ×4 (06:48→21:34)
[2019-02-03 08:09] VITALS: BP 147/80
[2019-02-03] MEDS: FUROSEMIDE 20 MG/2 ML IV SCH ×2 (10:24→21:34)
[2019-02-03] MEDS: FINASTERIDE 5 MG TABLET PO SCH (10:24)
[2019-02-03] MEDS: CYANOCOBALAMIN 1,000 MCG TABLET PO SCH ×2 (10:25→21:34)
[2019-02-03] MEDS: OMEPRAZOLE 20 MG CAPSULE.DR PO SCH (10:25)
[2019-02-03] MEDS: CHOLECALCIFEROL 1,000 UNIT TABLET PO SCH (10:25)
[2019-02-03] MEDS: ASPIRIN 81 MG TABLET EC PO SCH (10:26)
[2019-02-03] MEDS: CARVEDILOL 3.125 MG TABLET PO SCH ×2 (10:26→21:34)
[2019-02-03] MEDS: LOSARTAN 25MG TABLET PO SCH (10:26)
[2019-02-03] MEDS: ASCORBIC ACID 500 MG TABLET PO SCH (10:26)
[2019-02-03] MEDS: BACLOFEN 10 MG TABLET PO SCH ×2 (10:26→21:34)
[2019-02-03] MEDS: DULOXETINE 30 MG CAPSULE.DR PO SCH (10:26)
[2019-02-03] MEDS: TAMSULOSIN 0.4 MG CAP.ER.24H PO SCH (10:27)
[2019-02-03] MEDS: ENOXAPARIN 40 MG/0.4 ML SQ SCH (12:32)
[2019-02-03] MEDS: NICOTINE 7 MG/24 HR PATCH.TD24 TD SCH (16:30)
[2019-02-03] MEDS ORDERED: LORazepam 2 MG/ML, 1ML IVPush PRN (17:00)
[2019-02-03 19:20] VITALS: BP 139/70
[2019-02-03] MEDS: ATORVASTATIN 40 MG TABLET PO SCH (21:34)
[2019-02-04] MEDS: methylPREDNISolone SOD SUCC 125 MG/2 ML IVPush SCH ×4 (02:27→19:51)
[2019-02-04] MEDS: PREGABALIN 100 MG CAPSULE PO SCH ×3 (02:27→18:49)
[2019-02-04] MEDS: PIPERACILLIN/TAZO/PMX 3.375GM 50 ML IV SCH ×4 (02:28→19:51)
[2019-02-04] MEDS: HYDROcodone/APAP 5/325 TABLET PO PRN ×3 (02:28→14:45)
[2019-02-04 02:33] VITALS: BP 139/61
[2019-02-04] MEDS: FUROSEMIDE 20 MG/2 ML IV SCH ×2 (08:15→19:51)
[2019-02-04] MEDS: OMEPRAZOLE 20 MG CAPSULE.DR PO SCH (08:17)
[2019-02-04] MEDS: CHOLECALCIFEROL 1,000 UNIT TABLET PO SCH (08:17)
[2019-02-04] MEDS: GUAIFENESIN ER 600 MG TABLET PO SCH ×2 (08:18→18:49)
[2019-02-04] MEDS: DULOXETINE 30 MG CAPSULE.DR PO SCH (08:18)
[2019-02-04] MEDS: TAMSULOSIN 0.4 MG CAP.ER.24H PO SCH (08:18)
[2019-02-04] MEDS: FINASTERIDE 5 MG TABLET PO SCH (08:18)
[2019-02-04] MEDS: ASPIRIN 81 MG TABLET EC PO SCH (08:18)
[2019-02-04] MEDS: ASCORBIC ACID 500 MG TABLET PO SCH (08:18)
[2019-02-04] MEDS: CARVEDILOL 3.125 MG TABLET PO SCH ×2 (08:19→19:51)
[2019-02-04] MEDS: CYANOCOBALAMIN 1,000 MCG TABLET PO SCH ×2 (08:19→19:51)
[2019-02-04] MEDS: LOSARTAN 25MG TABLET PO SCH (08:19)
[2019-02-04] MEDS: BACLOFEN 10 MG TABLET PO SCH ×2 (08:19→19:51)
[2019-02-04 08:27] VITALS: BP 153/84
[2019-02-04] MEDS: ALBUTEROL SULFATE 2.5 MG/3 ML NPPB SCH ×4 (08:30→20:00)
[2019-02-04 13:31] VITALS: BP 132/82
[2019-02-04] MEDS: ENOXAPARIN 40 MG/0.4 ML SQ SCH (14:45)
[2019-02-04] MEDS: morphine SULFATE 10 MG/ML, 1ML IVPush PRN (15:03)
[2019-02-04] MEDS: NICOTINE 7 MG/24 HR PATCH.TD24 TD SCH (15:40)
[2019-02-04 19:36] VITALS: BP 145/73
[2019-02-04] MEDS: ATORVASTATIN 40 MG TABLET PO SCH (19:50)
[2019-02-05] MEDS: morphine SULFATE 10 MG/ML, 1ML IVPush PRN (01:19)
[2019-02-05 01:31] VITALS: BP 117/73
[2019-02-05] MEDS: methylPREDNISolone SOD SUCC 125 MG/2 ML IVPush SCH ×4 (02:04→19:35)
[2019-02-05] MEDS: PIPERACILLIN/TAZO/PMX 3.375GM 50 ML IV SCH ×4 (02:04→19:34)
[2019-02-05] MEDS: PREGABALIN 100 MG CAPSULE PO SCH ×3 (02:04→17:31)
[2019-02-05] MEDS: HYDROcodone/APAP 5/325 TABLET PO PRN ×3 (02:10→19:34)
[2019-02-05] MEDS: ALBUTEROL SULFATE 2.5 MG/3 ML NPPB SCH ×2 (03:00→09:50)
[2019-02-05 08:24] VITALS: BP 144/80
[2019-02-05] MEDS: ASCORBIC ACID 500 MG TABLET PO SCH (08:29)
[2019-02-05] MEDS: TAMSULOSIN 0.4 MG CAP.ER.24H PO SCH (08:29)
[2019-02-05] MEDS: ASPIRIN 81 MG TABLET EC PO SCH (08:30)
[2019-02-05] MEDS: OMEPRAZOLE 20 MG CAPSULE.DR PO SCH (08:30)
[2019-02-05] MEDS: LOSARTAN 25MG TABLET PO SCH (08:30)
[2019-02-05] MEDS: CHOLECALCIFEROL 1,000 UNIT TABLET PO SCH (08:30)
[2019-02-05] MEDS: GUAIFENESIN ER 600 MG TABLET PO SCH ×2 (08:31→19:34)
[2019-02-05] MEDS: CYANOCOBALAMIN 1,000 MCG TABLET PO SCH ×2 (08:31→19:34)
[2019-02-05] MEDS: DULOXETINE 30 MG CAPSULE.DR PO SCH (08:31)
[2019-02-05] MEDS: BACLOFEN 10 MG TABLET PO SCH ×2 (08:31→19:34)
[2019-02-05] MEDS: FINASTERIDE 5 MG TABLET PO SCH (08:31)
[2019-02-05] MEDS: FUROSEMIDE 20 MG/2 ML IV SCH ×2 (08:32→19:35)
[2019-02-05] MEDS: CARVEDILOL 3.125 MG TABLET PO SCH ×2 (08:32→19:34)
[2019-02-05] MEDS: ENOXAPARIN 40 MG/0.4 ML SQ SCH (12:07)
[2019-02-05 14:05] VITALS: BP 129/76
[2019-02-05] MEDS ORDERED: ALBUTEROL SULFATE 2.5 MG/3 ML NPPB PRN (17:00)
[2019-02-05] MEDS: NICOTINE 7 MG/24 HR PATCH.TD24 TD SCH (17:10)
[2019-02-05 19:07] VITALS: BP 133/88
[2019-02-05] MEDS: ATORVASTATIN 40 MG TABLET PO SCH (19:35)
[2019-02-06 01:14] VITALS: BP 146/79
[2019-02-06] MEDS: HYDROcodone/APAP 5/325 TABLET PO PRN ×2 (01:50→17:58)
[2019-02-06] MEDS: PIPERACILLIN/TAZO/PMX 3.375GM 50 ML IV SCH ×4 (01:50→19:41)
[2019-02-06] MEDS: methylPREDNISolone SOD SUCC 125 MG/2 ML IVPush SCH ×4 (01:51→19:38)
[2019-02-06] MEDS: PREGABALIN 100 MG CAPSULE PO SCH ×3 (01:51→17:58)
[2019-02-06 02:49] LABS: TROPONIN I 0.096 ng/mL (0.000-0.045)
[2019-02-06] MEDS: morphine SULFATE 10 MG/ML, 1ML IVPush PRN ×2 (04:48→19:38)
[2019-02-06 07:23] VITALS: BP 139/92
[2019-02-06] MEDS: FUROSEMIDE 20 MG/2 ML IV SCH ×2 (07:27→19:39)
[2019-02-06] MEDS: OMEPRAZOLE 20 MG CAPSULE.DR PO SCH (07:27)
[2019-02-06] MEDS: ASPIRIN 81 MG TABLET EC PO SCH (07:27)
[2019-02-06] MEDS: DULOXETINE 30 MG CAPSULE.DR PO SCH (07:28)
[2019-02-06] MEDS: ASCORBIC ACID 500 MG TABLET PO SCH (07:28)
[2019-02-06] MEDS: GUAIFENESIN ER 600 MG TABLET PO SCH ×2 (07:28→19:38)
[2019-02-06] MEDS: FINASTERIDE 5 MG TABLET PO SCH (07:28)
[2019-02-06] MEDS: LOSARTAN 25MG TABLET PO SCH (07:28)
[2019-02-06] MEDS: CARVEDILOL 3.125 MG TABLET PO SCH ×2 (07:29→19:38)
[2019-02-06] MEDS: TAMSULOSIN 0.4 MG CAP.ER.24H PO SCH (07:29)
[2019-02-06] MEDS: CHOLECALCIFEROL 1,000 UNIT TABLET PO SCH (07:29)
[2019-02-06] MEDS: BACLOFEN 10 MG TABLET PO SCH ×2 (07:29→19:38)
[2019-02-06] MEDS: CYANOCOBALAMIN 1,000 MCG TABLET PO SCH ×2 (07:34→19:38)
[2019-02-06 08:41] LABS: TROPONIN I 0.101 ng/mL (0.000-0.045)
[2019-02-06 13:59] VITALS: BP 132/81
[2019-02-06] MEDS: ENOXAPARIN 40 MG/0.4 ML SQ SCH (13:59)
[2019-02-06] MEDS: NICOTINE 7 MG/24 HR PATCH.TD24 TD SCH (15:52)
[2019-02-06 19:17] VITALS: BP 128/78
[2019-02-06] MEDS: ATORVASTATIN 40 MG TABLET PO SCH (19:38)
[2019-02-07 00:37] VITALS: BP 154/91
[2019-02-07] MEDS: methylPREDNISolone SOD SUCC 125 MG/2 ML IVPush SCH ×4 (02:07→20:13)
[2019-02-07] MEDS: PIPERACILLIN/TAZO/PMX 3.375GM 50 ML IV SCH ×4 (02:07→20:13)
[2019-02-07] MEDS: PREGABALIN 100 MG CAPSULE PO SCH ×3 (02:07→19:44)
[2019-02-07] MEDS: morphine SULFATE 10 MG/ML, 1ML IVPush PRN ×4 (04:31→20:13)
[2019-02-07 06:06] LABS: MEAN CORPUSCULAR HEMOGLOBIN 26.8 pg (27.5-34.5); MEAN CORPUSCULAR HGB CONC 31.7 g/dL (33.2-36.2); MEAN CORPUSCULAR VOLUME 84.7 fL (81-97); PLATELET COUNT 255 x10^3/uL (130-400); RED BLOOD COUNT 4.52 x10^6/uL (4.38-5.82); RED CELL DISTRIBUTION WIDTH 20.5 % (9.4-14.8)
[2019-02-07 06:18] LABS: CHLORIDE 103 mmol/L (98-107)
[2019-02-07 06:30] LABS: MD YES
[2019-02-07 06:31] LABS: BAND#(MANUAL) 0.35 x10^3/uL; BANDS%(MANUAL) 2 % (0-7); LYMPH#(MANUAL) 1.59 x10^3/uL (1-3.4); LYMPHS% (MANUAL) 9 % (22-44); MONOS#(MANUAL) 0.35 x10^3/uL (0.3-2.7); MONOS% (MANUAL) 2 % (2-9); SEGS% (MANUAL) 87 % (42-75)
[2019-02-07 06:33] LABS: ALANINE AMINOTRANSFERASE 35 U/L (12-78); ALBUMIN 2.6 g/dL (3.4-5.0); ALKALINE PHOSPHATASE 97 U/L (45-117); ANION GAP 8 mmol/L (5-15); ANISOCYTOSIS 1+; BILIRUBIN,TOTAL 0.4 mg/dL (0.2-1.0); CALCIUM 8.2 mg/dL (8.5-10.1); CREATININE 1.22 mg/dL (0.7-1.3); OVALOCYTES 1+; TOTAL PROTEIN 5.1 g/dL (6.4-8.2)
[2019-02-07 06:34] LABS: SCHISTOCYTES 1+
[2019-02-07 06:35] LABS: <PLATELET ESTIMATE> ADEQUATE; ACANTHOCYTES 1+; LARGE PLATELETS 1+; TARGET CELLS 1+
[2019-02-07] MEDS: HYDROcodone/APAP 5/325 TABLET PO PRN (06:37)
[2019-02-07 08:00] VITALS: BP 145/81
[2019-02-07] MEDS: CYANOCOBALAMIN 1,000 MCG TABLET PO SCH ×2 (08:42→21:01)
[2019-02-07] MEDS: FUROSEMIDE 20 MG/2 ML IV SCH ×2 (08:42→21:02)
[2019-02-07] MEDS: OMEPRAZOLE 20 MG CAPSULE.DR PO SCH (08:42)
[2019-02-07] MEDS: LOSARTAN 25MG TABLET PO SCH (08:43)
[2019-02-07] MEDS: CARVEDILOL 3.125 MG TABLET PO SCH ×2 (08:43→21:02)
[2019-02-07] MEDS: FINASTERIDE 5 MG TABLET PO SCH (08:43)
[2019-02-07] MEDS: ASCORBIC ACID 500 MG TABLET PO SCH (08:43)
[2019-02-07] MEDS: CHOLECALCIFEROL 1,000 UNIT TABLET PO SCH (08:43)
[2019-02-07] MEDS: TAMSULOSIN 0.4 MG CAP.ER.24H PO SCH (08:43)
[2019-02-07] MEDS: ASPIRIN 81 MG TABLET EC PO SCH (08:44)
[2019-02-07] MEDS: DULOXETINE 30 MG CAPSULE.DR PO SCH (08:44)
[2019-02-07] MEDS: BACLOFEN 10 MG TABLET PO SCH ×2 (08:44→21:02)
[2019-02-07] MEDS: GUAIFENESIN ER 600 MG TABLET PO SCH ×2 (08:44→19:44)
[2019-02-07 14:55] VITALS: BP 124/82
[2019-02-07] MEDS: ENOXAPARIN 40 MG/0.4 ML SQ SCH (15:28)
[2019-02-07] MEDS: NICOTINE 7 MG/24 HR PATCH.TD24 TD SCH (16:30)
[2019-02-07 19:01] VITALS: BP_SYST 127; BP_SYST 150; BP_DIAS 65; BP_DIAS 69
[2019-02-07] MEDS: ATORVASTATIN 40 MG TABLET PO SCH (21:01)
[2019-02-08] MEDS: morphine SULFATE 10 MG/ML, 1ML IVPush PRN ×3 (00:07→06:10)
[2019-02-08 02:30] VITALS: BP 144/85
[2019-02-08] MEDS: PIPERACILLIN/TAZO/PMX 3.375GM 50 ML IV SCH ×3 (02:50→18:41)
[2019-02-08] MEDS: PREGABALIN 100 MG CAPSULE PO SCH ×3 (02:50→19:44)
[2019-02-08] MEDS: methylPREDNISolone SOD SUCC 125 MG/2 ML IVPush SCH ×4 (02:50→23:17)
[2019-02-08 07:49] VITALS: BP 157/91
[2019-02-08] MEDS: OMEPRAZOLE 20 MG CAPSULE.DR PO SCH (10:44)
[2019-02-08] MEDS: CARVEDILOL 3.125 MG TABLET PO SCH ×2 (10:44→21:58)
[2019-02-08] MEDS: DULOXETINE 30 MG CAPSULE.DR PO SCH (10:44)
[2019-02-08] MEDS: ASCORBIC ACID 500 MG TABLET PO SCH (10:44)
[2019-02-08] MEDS: CYANOCOBALAMIN 1,000 MCG TABLET PO SCH ×2 (10:44→21:58)
[2019-02-08] MEDS: TAMSULOSIN 0.4 MG CAP.ER.24H PO SCH (10:44)
[2019-02-08] MEDS: BACLOFEN 10 MG TABLET PO SCH ×2 (10:44→21:58)
[2019-02-08] MEDS: HYDROcodone/APAP 5/325 TABLET PO PRN ×2 (10:45→19:53)
[2019-02-08] MEDS: ASPIRIN 81 MG TABLET EC PO SCH (10:45)
[2019-02-08] MEDS: FUROSEMIDE 20 MG/2 ML IV SCH ×2 (10:52→19:45)
[2019-02-08] MEDS: FLUCONAZOLE 200 MG TABLET PO SCH (10:53)
[2019-02-08] MEDS: FINASTERIDE 5 MG TABLET PO SCH (10:53)
[2019-02-08] MEDS: LOSARTAN 25MG TABLET PO SCH (10:53)
[2019-02-08] MEDS: GUAIFENESIN ER 600 MG TABLET PO SCH ×2 (10:53→23:17)
[2019-02-08] MEDS: CHOLECALCIFEROL 1,000 UNIT TABLET PO SCH (10:55)
[2019-02-08] MEDS: ENOXAPARIN 40 MG/0.4 ML SQ SCH (13:30)
[2019-02-08 14:40] VITALS: BP 127/87
[2019-02-08] MEDS: NICOTINE 7 MG/24 HR PATCH.TD24 TD SCH (16:30)
[2019-02-08 20:20] VITALS: BP 126/79
[2019-02-08] MEDS: ATORVASTATIN 40 MG TABLET PO SCH (21:58)
[2019-02-09] MEDS: PIPERACILLIN/TAZO/PMX 3.375GM 50 ML IV SCH ×3 (00:24→13:15)
[2019-02-09 01:11] VITALS: BP 130/77
[2019-02-09] MEDS: HYDROcodone/APAP 5/325 TABLET PO PRN ×2 (01:46→13:14)
[2019-02-09] MEDS: PREGABALIN 100 MG CAPSULE PO SCH ×2 (04:08→13:14)
[2019-02-09 04:33] LABS: MEAN CORPUSCULAR HEMOGLOBIN 27.6 pg (27.5-34.5); MEAN CORPUSCULAR HGB CONC 32.7 g/dL (33.2-36.2); MEAN CORPUSCULAR VOLUME 84.4 fL (81-97); MEAN PLATELET VOLUME 10.8 fL (7.4-10.4); PLATELET COUNT 256 x10^3/uL (130-400); RED BLOOD COUNT 4.65 x10^6/uL (4.38-5.82); RED CELL DISTRIBUTION WIDTH 20.6 % (9.4-14.8)
[2019-02-09 04:46] LABS: ALBUMIN 2.6 g/dL (3.4-5.0); ANION GAP 7 mmol/L (5-15); CALCIUM 7.9 mg/dL (8.5-10.1); CHLORIDE 99 mmol/L (98-107); CREATININE 1.22 mg/dL (0.7-1.3)
[2019-02-09 04:49] LABS: ALANINE AMINOTRANSFERASE 41 U/L (12-78); ALKALINE PHOSPHATASE 83 U/L (45-117); BILIRUBIN,TOTAL 0.7 mg/dL (0.2-1.0); TOTAL PROTEIN 5.6 g/dL (6.4-8.2)
[2019-02-09 05:10] LABS: BASOPHILS # (AUTO) 0.08 x10^3/uL (0-0.1); BASOPHILS % (AUTO) 0 % (0-1); EOSINOPHILS # (AUTO) 0.09 x10^3/uL (0-0.4); EOSINOPHILS % (AUTO) 0 % (1-7); LYMPHOCYTES # (AUTO) 0.54 x10^3/uL (1-3.4); LYMPHOCYTES % (AUTO) 3 % (22-44); MD SCAN; MONOCYTES # (AUTO) 0.23 x10^3/uL (0.2-0.8); MONOCYTES % (AUTO) 1 % (2-9); NEUTROPHILS # (AUTO) 20.05 x10^3/uL (1.8-6.8); NEUTROPHILS % (AUTO) 96 % (42-75)
[2019-02-09] MEDS: methylPREDNISolone SOD SUCC 125 MG/2 ML IVPush SCH ×3 (05:36→16:21)
[2019-02-09 08:29] VITALS: BP 148/94
[2019-02-09] MEDS: TAMSULOSIN 0.4 MG CAP.ER.24H PO SCH (10:13)
[2019-02-09] MEDS: ASCORBIC ACID 500 MG TABLET PO SCH (10:13)
[2019-02-09] MEDS: CHOLECALCIFEROL 1,000 UNIT TABLET PO SCH (10:14)
[2019-02-09] MEDS: LOSARTAN 25MG TABLET PO SCH (10:14)
[2019-02-09] MEDS: DULOXETINE 30 MG CAPSULE.DR PO SCH (10:14)
[2019-02-09] MEDS: FLUCONAZOLE 200 MG TABLET PO SCH (10:14)
[2019-02-09] MEDS: ASPIRIN 81 MG TABLET EC PO SCH (10:15)
[2019-02-09] MEDS: BACLOFEN 10 MG TABLET PO SCH (10:15)
[2019-02-09] MEDS: CYANOCOBALAMIN 1,000 MCG TABLET PO SCH (10:15)
[2019-02-09] MEDS: FINASTERIDE 5 MG TABLET PO SCH (10:15)
[2019-02-09] MEDS: GUAIFENESIN ER 600 MG TABLET PO SCH (10:15)
[2019-02-09] MEDS: morphine SULFATE 10 MG/ML, 1ML IVPush PRN ×2 (10:15→16:21)
[2019-02-09] MEDS: CARVEDILOL 3.125 MG TABLET PO SCH (10:15)
[2019-02-09] MEDS: OMEPRAZOLE 20 MG CAPSULE.DR PO SCH (10:15)
[2019-02-09] MEDS: FUROSEMIDE 20 MG/2 ML IV SCH (10:16)
[2019-02-09] MEDS ORDERED: AMOX1TAB64 PO (13:02)
[2019-02-09] MEDS ORDERED: LOSA25TA25 PO (13:05)
[2019-02-09] MEDS: ENOXAPARIN 40 MG/0.4 ML SQ SCH (13:15)
[2019-02-09 14:50] VITALS: BP 131/72
[2019-02-09] MEDS: NICOTINE 7 MG/24 HR PATCH.TD24 TD SCH (16:21)
== END 2019-02-09 16:45 | disposition hospice, inpatient (51) | DRG 180 ==
LOC: ED 11:06 → EDIP 11:07 → ED 11:34 → 4WST 12:06 → 3NW 02-01 17:09
PROVIDERS: ADMIT Hospitalist; ATTEND Hospitalist
PROC: 0W9B3ZZ Drainage of Left Pleural Cavity, Percutaneous Approach (ICD-10-PCS; principal; 2019-01-25)
DX: C34.12 Malignant neoplasm of upper lobe, left bronchus or lung (principal); J96.01 Acute respiratory failure with hypoxia; E43 Unspecified severe protein-calorie malnutrition; J18.9 Pneumonia, unspecified organism; N17.0 Acute kidney failure with tubular necrosis; I50.23 Acute on chronic systolic (congestive) heart failure; J44.1 Chronic obstructive pulmonary disease with (acute) exacerbation; J44.0 Chronic obstructive pulmonary disease with (acute) lower respiratory infection; J91.0 Malignant pleural effusion; E87.2 Acidosis; C7A.8 Other malignant neuroendocrine tumors; Z66 Do not resuscitate; N40.0 Benign prostatic hyperplasia without lower urinary tract symptoms; K21.9 Gastro-esophageal reflux disease without esophagitis; E27.9 Disorder of adrenal gland, unspecified; Z51.5 Encounter for palliative care; M17.10 Unilateral primary osteoarthritis, unspecified knee; I73.9 Peripheral vascular disease, unspecified; F17.210 Nicotine dependence, cigarettes, uncomplicated; D64.9 Anemia, unspecified; I72.3 Aneurysm of iliac artery; F12.90 Cannabis use, unspecified, uncomplicated; I34.0 Nonrheumatic mitral (valve) insufficiency; G62.9 Polyneuropathy, unspecified; M19.90 Unspecified osteoarthritis, unspecified site; K86.89 Other specified diseases of pancreas; Z95.820 Peripheral vascular angioplasty status with implants and grafts; Z80.9 Family history of malignant neoplasm, unspecified; Z83.3 Family history of diabetes mellitus; Z85.118 Personal history of other malignant neoplasm of bronchus and lung; Z89.429 Acquired absence of other toe(s), unspecified side; Z90.2 Acquired absence of lung [part of]; Z88.8 Allergy status to other drugs, medicaments and biological substances; Z88.6 Allergy status to analgesic agent; Z91.030 Bee allergy status; Z71.6 Tobacco abuse counseling
CPT/HCPCS: 32555; 36415; 36600; 70460; 71045; 71275; 74177; 80048; 80053; 80061; 82803; 82945; 83036; 83605; 83615; 83735; 83880; 83986; 84100; 84157; 84439; 84443; 84484; 85025; 85610; 86480; 87040; 87070; 87205; 88112; 88305; 88341; 88342; 89051; 93005; 93306; 94640; 99285; G0378; J1644; J1650; J1940; J2250; J2543; J3010; J7613; Q9967; J2060; J2270; J2310; J2930; J7030